=== PATIENT | female | born 1950 | race African-American/Black ===

== ENCOUNTER 2017-05-09 06:48 | Emergency (ER) | payer MEDICARE, MEDICAID ==
[~2017-05-09] VITALS: Ht 160 cm; Wt 104.0 kg
[2017-05-09 06:50] VITALS: BP 144/66
[2017-05-09] MEDS ORDERED: ACETAMINOPHEN 500MG TABLET PO ONE (08:45)
== END 2017-05-09 08:50 | disposition home or self-care (01) ==
LOC: ER 06:48
DX: M19.90 Unspecified osteoarthritis, unspecified site (principal); E66.9 Obesity, unspecified; L02.415 Cutaneous abscess of right lower limb; I10 Essential (primary) hypertension; E11.9 Type 2 diabetes mellitus without complications; F17.200 Nicotine dependence, unspecified, uncomplicated; Z88.5 Allergy status to narcotic agent; Z88.2 Allergy status to sulfonamides
CPT/HCPCS: 99283